=== PATIENT | female | born 1990 | race African-American/Black ===

== ENCOUNTER 2023-09-16 14:57 | Emergency (ER) | payer MEDICAID ==
[~2023-09-16] VITALS: Ht 165.1 cm; Wt 62.0 kg
[2023-09-16 15:09] VITALS: BP 132/98; RESP 18; TEMP 98; O2SAT 100
[2023-09-16 15:28] VITALS: PULSE 84
== END 2023-09-17 01:55 | disposition left against medical advice (07) ==
LOC: ER 14:57
DX: R07.89 Other chest pain (principal); Z53.21 Procedure and treatment not carried out due to patient leaving prior to being seen by health care provider
CPT/HCPCS: 99281